=== PATIENT | male | born 1955 | race Hispanic/Latino ===

== ENCOUNTER 2017-04-13 10:38 | Emergency (ER) | payer OTHER ==
[2017-04-13 10:50] VITALS: BP 152/91; PULSE 70; TEMP 98
[2017-04-13 10:59] VITALS: RESP 18; O2SAT 99
--- NOTE | 2017-04-13 11:04 | ED PDOC ---
HPI: General Adult Time Seen by Provider: 04/13/17 11:01 Chief Complaint (Nursing): Abnormal Skin Integrity Chief Complaint (Provider): fall History Per: Patient Additional Complaint(s): 61-year-old male presents to the ER status post fall. Patient was walking when he accidentally tripped and fell. He denies dizziness or syncope prior to fall. He states that he hit his face against the ground sustaining nasal injury. Patient has had mild bleeding from left nares since the fall and he sustained abrasions and lacerations to nasal bridge. Patient states he did not sustain LOC. Tetanus is up to date. PMD: At [facility] Past Medical History Reviewed: Historical Data, Nursing Documentation, Vital Signs Vital Signs: Last Vital Signs Temp 98.0 F 04/13/17 10:56 Pulse 70 04/13/17 10:56 Resp 18 04/13/17 10:56 BP 152/91 H 04/13/17 10:56 Pulse Ox 99 04/13/17 11:04 - Medical History PMH: No Chronic Diseases - Family History Family History: States: No Known Family Hx - Social History Current smoker - smoking cessation education provided: No Alcohol: None Drugs: Denies - Immunization History Hx Tetanus Toxoid Vaccination: Yes - Home Medications Home Medications: Ambulatory Orders Medication Instructions Recorded Amoxicillin/Clavulanate [Augmentin 1 tab PO BID #14 tab 04/13/17 875 MG-125 MG] - Allergies Allergies/Adverse Reactions: Allergies Allergy/AdvReac Type Severity Reaction Status Date / Time No Known Allergies Allergy Verified 04/13/17 10:56 Review of Systems ROS Statement: Except As Marked, All Systems Reviewed And Found Negative ENT: Positive for: Other (nasal abrasion and laceration s/p fall) Neurological: Positive for: Other (head injury with no LOC, denies dizziness or syncope prior to fall) Physical Exam - Reviewed Nursing Documentation Reviewed: Yes Vital Signs Reviewed: Yes - Physical Exam Appears: Positive for: Well, Non-toxic, No Acute Distress Head Exam: Positive for: ATRAUMATIC, NORMAL INSPECTION Skin: Negative for: Rash Eye Exam: Positive for: Normal appearance ENT: Positive for: Other (Diffuse swelling and tenderness across nasal bridge proximally, 1 cm superficial laceration noted to proximal nasal bridge, additional 1 cm superficial laceration noted to the distal aspect of the nasal bridge on left side, bilateral nares are patent with no active bleeding, dried blood is noted, no septal hematoma, airway patent, uvula midline, no acute dental fractures.) Neck: Positive for: Normal, Painless ROM Cardiovascular/Chest: Positive for: Regular Rate, Rhythm Respiratory: Positive for: Normal Breath Sounds. Negative for: Respiratory Distress Back: Negative for: Vertebral Tenderness Extremity: Positive for: Normal ROM Neurologic/Psych: Positive for: Alert, Oriented, Gait (steady) - ECG O2 Sat by Pulse Oximetry: 99 Pulse Ox Interpretation: Normal - Other Rad CT head X-Ray: Read By Radiologist X-Ray Interpretation: no acute finding CT facial bones X-Ray: Read By Radiologist X-Ray Interpretation: see below Medical Decision Making Medical Decision Makin61 year old male with facial injury s/p fall Plan: PO tylenol CT head and facial bones CT facial bones: FINDINGS: NASAL BONES: There are bilateral relatively nondisplaced nasal bone fractures with overlying soft tissue swelling. Suspect nondisplaced fracture of anterior nasal septum as well. Suspect fracture anterior spine. ORBITS: Orbits and contents unremarkable. Globes intact and lenses appropriately located. There are no retrobulbar hemorrhages or collections. There is an extraocular musculature unremarkable. PARANASAL SINUSES/ MASTOIDS: Mild mucosal thickening seen within the ethmoid air complex. Minor mucosal thickening both maxillary antra. MAXILLA: As above MANDIBLE/ TEMPOROMANDIBULAR JOINTS: Unremarkable. SKULL BASE: Unremarkable. TEMPORAL BONES : Middle ears and mastoid grossly unremarkable. OTHER FINDINGS: None. IMPRESSION: Nondisplaced bilateral nasal bone fractures with overlying soft tissue swelling. Suspect nondisplaced anterior nasal septal fracture is well as possible fracture of the anterior nasal spine. Patient is aware CT results, all questions answered. Procedure note: Lacerations and abrasions to her nasal bridge were cleansed with normal saline and Betadine, Dermabond was used to repair two, 1 cm laceration to nasal bridge. Good wound approximation was achieved, good bleeding control was achieved. Procedure was tolerated well by patient. Patient given prescription for Augmentin, advised Tylenol for pain, ENT referral given. Disposition - Clinical Impression Clinical Impression: Head injury, Nasal fracture, Superficial laceration of face Counseled Patient/Family Regarding: Studies Performed, Diagnosis, Need For Followup, Rx Given - Disposition Referrals: Suresh Kelly MD [Staff Provider] - Disposition: Routine/Home Disposition Time: 13:27 Condition: STABLE Additional Instructions: KEEP WOUNDS CLEAN AND DRY. ALLOW EXCESS GLUE TO FALKE OFF ON ITS OWN, DO NOT PEEL AWAY GLUE. TYLENOL FOR PAIN. TAKE RX MEDS DIRECTED. FOLLOW UP WITH ENT IN 2-3 DAYS. Prescriptions: Amoxicillin/Clavulanate [Augmentin 875 MG-125 MG] 1 tab PO BID #14 tab Instructions: Closed Head Injury (DC), Nose Fracture, Laceration Repair With Glue (DC) Forms: [employer] (Rwandan)
--- NOTE | 2017-04-13 13:07 | CT ---
PROCEDURE: CT scan brain dated 04/13/2017. HISTORY: Trauma COMPARISON: Correlation made with concurrent CT scan maxillofacial skeleton. TECHNIQUE: Axial computed tomography images were obtained through the head/brain without intravenous contrast. Radiation dose: Total exam DLP = 866.09 mGy-cm. This CT exam was performed using one or more of the following dose reduction techniques: Automated exposure control, adjustment of the mA and/or kV according to patient size, and/or use of iterative reconstruction technique. FINDINGS: HEMORRHAGE: No acute parenchymal, subarachnoid or extra-axial hemorrhage. BRAIN: No mass effect or edema. No atrophy or chronic microvascular ischemic changes. Mild mild age appropriate volume loss. VENTRICLES: No obstructive hydrocephalus. CALVARIUM: No acute calvarial fractures. Bilateral nasal bone fracture deformities and suspected nasal septal fracture are not appreciated on this study as compared to concurrent CT scan maxillofacial skeleton. PARANASAL SINUSES: Mild mucosal thickening seen within the ethmoid air complex. MASTOID AIR CELLS: Unremarkable as visualized. No inflammatory changes. OTHER FINDINGS: None. IMPRESSION: No acute intracranial hemorrhage.
--- NOTE | 2017-04-13 13:19 | CT ---
PROCEDURE: CT scan maxillofacial skeleton dated 04/13/2017 HISTORY: Trauma COMPARISON: Correlation made with concurrent CT scan of the brain. TECHNIQUE: Contiguous axial CT images of the maxillofacial bones were obtained. Coronal and sagittal reformats were generated. Radiation dose: Total exam DLP = 769.15 mGy-cm. This CT exam was performed using one or more of the following dose reduction techniques: Automated exposure control, adjustment of the mA and/or kV according to patient size, and/or use of iterative reconstruction technique. FINDINGS: NASAL BONES: There are bilateral relatively nondisplaced nasal bone fractures with overlying soft tissue swelling. Suspect nondisplaced fracture of anterior nasal septum as well. Suspect fracture anterior spine. ORBITS: Orbits and contents unremarkable. Globes intact and lenses appropriately located. There are no retrobulbar hemorrhages or collections. There is an extraocular musculature unremarkable. PARANASAL SINUSES/ MASTOIDS: Mild mucosal thickening seen within the ethmoid air complex. Minor mucosal thickening both maxillary antra. MAXILLA: As above MANDIBLE/ TEMPOROMANDIBULAR JOINTS: Unremarkable. SKULL BASE: Unremarkable. TEMPORAL BONES: Middle ears and mastoid grossly unremarkable. OTHER FINDINGS: None. IMPRESSION: Nondisplaced bilateral nasal bone fractures with overlying soft tissue swelling. Suspect nondisplaced anterior nasal septal fracture is well as possible fracture of the anterior nasal spine
== END 2017-04-13 13:41 | disposition home or self-care (01) ==
LOC: H.ER 10:38
DX: S01.81XA Laceration without foreign body of other part of head, initial encounter (principal); S02.2XXA Fracture of nasal bones, initial encounter for closed fracture; S09.90XA Unspecified injury of head, initial encounter; W19.XXXA Unspecified fall, initial encounter; Y92.89 Other specified places as the place of occurrence of the external cause

== ENCOUNTER 2018-06-19 06:50 | Emergency (ER) | payer OTHER ==
[2018-06-19 06:55] VITALS: BMI 25.7
[2018-06-19 06:56] VITALS: PULSE 89; RESP 18; TEMP 98.7; O2SAT 99
--- NOTE | 2018-06-19 07:28 | ED PDOC ---
Lower Extremity Pain/Injury Time Seen by Provider: 06/19/18 07:17 History Per: Patient Onset/Duration Of Symptoms: Days (1) Current Symptoms Are (Timing): Still Present Severity: Mild Additional Complaint(s): Twisted right knee while walking down steps last night. Fell while using cell phone. No other injury. Has pain and swelling to knee Past Medical History Vital Signs: Last Vital Signs Temp 98.7 F 06/19/18 06:55 Pulse 89 06/19/18 06:55 Resp 18 06/19/18 06:55 BP 150/57 L 06/19/18 06:55 Pulse Ox 99 06/19/18 06:55 - Medical History PMH: No Chronic Diseases - Family History Family History: States: Unknown Family Hx - Immunization History Hx Tetanus Toxoid Vaccination: Yes - Home Medications Home Medications: Ambulatory Orders Medication Instructions Recorded Amoxicillin/Clavulanate [Augmentin 1 tab PO BID #14 tab 04/13/17 875 MG-125 MG] Naproxen [Naprosyn] 500 mg PO Q12H #20 tab 06/19/18 - Allergies Allergies/Adverse Reactions: Allergies Allergy/AdvReac Type Severity Reaction Status Date / Time No Known Allergies Allergy Verified 04/13/17 10:56 Review of Systems Musculoskeletal: Positive for: Leg Pain Neurological: Negative for: Weakness, Numbness Physical Exam - Physical Exam Appears: Positive for: Non-toxic, No Acute Distress Skin: Positive for: Normal Color, Warm, DRY Extremity: Positive for: Other (Right knee, mild swelling medially with mild tenderness laterall. No instability or deformity FROM) Neurological/Psych: Positive for: Awake, Alert, Normal Tone. Negative for: Motor/Sensory Deficits - ECG O2 Sat by Pulse Oximetry: 99 Disposition - Clinical Impression Clinical Impression: Knee sprain - Patient ED Disposition Is Patient to be Admitted: No Counseled Patient/Family Regarding: Studies Performed, Diagnosis, Need For Followup, Rx Given - Disposition Referrals: Fátima Mar MD [Staff Provider] - Disposition: Routine/Home Disposition Time: 07:31 Condition: FAIR Prescriptions: Naproxen [Naprosyn] 500 mg PO Q12H #20 tab Instructions: Knee Sprain (DC)
--- NOTE | 2018-06-19 08:36 | RAD ---
Date of service: 06/19/2018 PROCEDURE: Right Knee Radiographs. HISTORY: trauma COMPARISON: None. TECHNIQUE: 2 views obtained. FINDINGS: BONES: No fracture. Small tibial spine spurs. JOINTS: Arthrosis JOINT EFFUSION: Small suprapatellar joint effusion suggested OTHER FINDINGS: quadriceps insertional enthesophyte. Mild generalized osteopenia IMPRESSION: No fracture seen. 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 Small suprapatellar joint effusion. Quadriceps insertional enthesophyte.
[2018-06-19 09:53] VITALS: BP 140/70
== END 2018-06-19 08:35 | disposition home or self-care (01) ==
LOC: H.ER 06:50
DX: S83.91XA Sprain of unspecified site of right knee, initial encounter (principal); X50.9XXA Other and unspecified overexertion or strenuous movements or postures, initial encounter; Y92.89 Other specified places as the place of occurrence of the external cause